=== PATIENT | female | born 1995 | race Hispanic/Latino ===

== ENCOUNTER 2019-08-03 14:35 | Emergency (ER) | payer OTHER | END 2019-08-03 14:44 | disposition left against medical advice (07) | LOC: EDH 14:35 | DX: Z53.21 Procedure and treatment not carried out due to patient leaving prior to being seen by health care provider (principal); F41.9 Anxiety disorder, unspecified; F32.9 Major depressive disorder, single episode, unspecified ==

== ENCOUNTER 2019-11-27 12:32 | Emergency (ER) | payer SELFPAY | END 2019-11-27 13:23 | disposition home or self-care (01) | LOC: EDH 12:32 | DX: S80.01XA Contusion of right knee, initial encounter (principal); S80.11XA Contusion of right lower leg, initial encounter; J45.909 Unspecified asthma, uncomplicated; F41.9 Anxiety disorder, unspecified; F32.9 Major depressive disorder, single episode, unspecified; Z90.49 Acquired absence of other specified parts of digestive tract; X58.XXXA Exposure to other specified factors, initial encounter; Y93.89 Activity, other specified; Y92.89 Other specified places as the place of occurrence of the external cause; Y99.8 Other external cause status | CPT/HCPCS: 99281 ==

== ENCOUNTER 2020-04-23 22:41 | Emergency (ER) | payer OTHER ==
[2020-04-23 23:03] LABS: BASOPHILS % (AUTO) 0.3 % (0.0-5.0); EOSINOPHILS % (AUTO) 0.6 % (0.0-8.0); HEMATOCRIT 33.7 % (36-48); LYMPHOCYTES % (AUTO) 15.4 % (21.0-51.0); MEAN CORPUSCULAR HEMOGLOBIN 30.1 pg (27.0-33.0); MEAN CORPUSCULAR HGB CONC 33.2 g/dL (32.0-36.0); MEAN CORPUSCULAR VOLUME 90.6 fL (79-99); MONOCYTES % (AUTO) 4.6 % (3.0-13.0); NEUTROPHILS % (AUTO) 78.8 % (40.0-77.0); PLATELET COUNT (AUTO) 308 K/uL (130-400); RED BLOOD CELL COUNT(AUTO) 3.72 MIL/uL (4.00-5.50); WHITE BLOOD COUNT (AUTO) 8.7 K/uL (4.8-10.8)
[2020-04-23 23:11] LABS: APPEARANCE,URINE Clear (CLEAR); BILIRUBIN,URINE Negative (NEGATIVE); COLOR,URINE Yellow (YELLOW); GLUCOSE, URINE (UA) Negative (NEGATIVE); KETONES,URINE Trace mg/dL (NEGATIVE); LEUKOCYTE ESTERASE ,URINE Negative (NEGATIVE); NITRATE,URINE Negative (NEGATIVE); OCCULT BLOOD,URINE Negative (NEGATIVE); PH,URINE 6.5 (5.0-8.0); PROTEIN,URINE Trace mg/dL (NEGATIVE)
[2020-04-23 23:13] LABS: HCG,QUAL RESULT NEGATIVE (NEGATIVE)
[2020-04-23 23:19] LABS: AMPHET/METH SCREEN,URINE POSITIVE (NEGATIVE); BARBITURATE SCREEN, URINE NEGATIVE (NEGATIVE); BENZODIAZEPINES SCREEN,URINE POSITIVE (NEGATIVE); CANNABINOID SCREEN,URINE POSITIVE (NEGATIVE); COCAINE SCREEN,URINE NEGATIVE (NEGATIVE); OPIATE SCREEN,URINE NEGATIVE (NEGATIVE); PHENCYCLIDINE SCREEN,URINE NEGATIVE (NEGATIVE)
[2020-04-23 23:23] LABS: ALBUMIN 3.9 g/dL (3.5-5.0); BILIRUBIN,TOTAL 0.4 mg/dL (0.2-1.0); CREATININE 0.7 mg/dL (0.5-1.5); TOTAL PROTEIN, SERUM 7.8 g/dL (6.0-8.3)
[2020-04-23] MEDS ORDERED: POTASSIUM BICARB/CIT AC 25 MEQ TABLET.EFF ONE (23:27)
== END 2020-04-23 23:45 ==
LOC: EDH 22:41
DX: E87.6 Hypokalemia (principal); R45.4 Irritability and anger; Z71.51 Drug abuse counseling and surveillance of drug abuser; J45.909 Unspecified asthma, uncomplicated; F32.9 Major depressive disorder, single episode, unspecified; F41.9 Anxiety disorder, unspecified; Z90.49 Acquired absence of other specified parts of digestive tract
CPT/HCPCS: 36415; 80053; 80305; 81003; 81025; 84484; 85025; 93005

== ENCOUNTER 2020-07-24 23:16 | Emergency (ER) | payer OTHER ==
[2020-07-24 23:35] LABS: BASOPHILS % (AUTO) 0.3 % (0.0-5.0); EOSINOPHILS % (AUTO) 1.8 % (0.0-8.0); HEMATOCRIT 37.3 % (36-48); LYMPHOCYTES % (AUTO) 25.3 % (21.0-51.0); MEAN CORPUSCULAR HEMOGLOBIN 26.5 pg (27.0-33.0); MEAN CORPUSCULAR HGB CONC 30.8 g/dL (32.0-36.0); MEAN CORPUSCULAR VOLUME 85.9 fL (79-99); MONOCYTES % (AUTO) 8.2 % (3.0-13.0); NEUTROPHILS % (AUTO) 64.1 % (40.0-77.0); PLATELET COUNT (AUTO) 264 K/uL (130-400); RED BLOOD CELL COUNT(AUTO) 4.34 MIL/uL (4.00-5.50); RED CELL DISTRIBUTION WIDTH 15.4 % (11.0-15.5); WHITE BLOOD COUNT (AUTO) 6.6 K/uL (4.8-10.8)
[2020-07-24 23:40] LABS: CREATININE 0.8 mg/dL (0.5-1.5); POTASSIUM 3.6 mmol/L (3.5-5.1)
[2020-07-24 23:46] LABS: ALBUMIN 3.3 g/dL (3.5-5.0); BILIRUBIN,TOTAL 0.2 mg/dL (0.2-1.0); TOTAL PROTEIN, SERUM 6.6 g/dL (6.0-8.3)
== END 2020-07-25 01:26 | disposition home or self-care (01) ==
LOC: EDH 23:16
DX: F44.5 Conversion disorder with seizures or convulsions (principal); Z76.5 Malingerer [conscious simulation]; F41.9 Anxiety disorder, unspecified; J45.909 Unspecified asthma, uncomplicated; F32.9 Major depressive disorder, single episode, unspecified; Z72.0 Tobacco use; Z90.49 Acquired absence of other specified parts of digestive tract
CPT/HCPCS: 36415; 80053; 82550; 85025; 93005

== ENCOUNTER 2020-08-08 14:56 | Inpatient (IN) | payer SELFPAY ==
[~2020-08-08] VITALS: Ht 162.6 cm; Wt 53.1 kg
[2020-08-08] MEDS ORDERED: 0.9%NACL 1000ML 1,000 ML IV ONE (15:25)
[2020-08-08 15:29] LABS: BASOPHILS % (AUTO) 0.2 % (0.0-5.0); EOSINOPHILS % (AUTO) 0.2 % (0.0-8.0); HEMATOCRIT 37.6 % (36-48); LYMPHOCYTES % (AUTO) 5.5 % (21.0-51.0); MEAN CORPUSCULAR HEMOGLOBIN 26.4 pg (27.0-33.0); MEAN CORPUSCULAR HGB CONC 33.2 g/dL (32.0-36.0); MEAN CORPUSCULAR VOLUME 79.3 fL (79-99); MONOCYTES % (AUTO) 3.7 % (3.0-13.0); PLATELET COUNT (AUTO) 429 K/uL (130-400); RED BLOOD CELL COUNT(AUTO) 4.74 MIL/uL (4.00-5.50); RED CELL DISTRIBUTION WIDTH 15.5 % (11.0-15.5); WHITE BLOOD COUNT (AUTO) 11.4 K/uL (4.8-10.8)
[2020-08-08 15:49] LABS: CARBON DIOXIDE 19 mmol/L (21-32); CHLORIDE 100 mmol/L (101-111); CREATININE 0.9 mg/dL (0.5-1.5); GLOMERULAR FILTR. RATE CALC 81 mL/min (>60); GLUCOSE,RANDOM 108 mg/dL (70-105); POTASSIUM 3.3 mmol/L (3.5-5.1); SODIUM SERUM 137 mmol/L (136-145); UREA NITROGEN, BLOOD 14 mg/dL (7-18)
[2020-08-08 15:53] LABS: ALANINE AMINOTRANSFERASE 18 U/L (12-78); ALBUMIN 4.3 g/dL (3.5-5.0); ALCOHOL, BLOOD < 3 mg/dL (0-10); ASPARTATE AMINOTRANSFERASE 20 U/L (10-37); BILIRUBIN,TOTAL 1.3 mg/dL (0.2-1.0); CREATINE KINASE, TOTAL 100 U/L (21-232); TOTAL PROTEIN, SERUM 8.3 g/dL (6.0-8.3)
[2020-08-08 15:54] LABS: ACETAMINOPHEN < 1 mcg/mL (10-30); SALICYLATE < 2.8 mg/dL (2.8-20.0)
[2020-08-08 16:38] LABS: APPEARANCE,URINE CLOUDY (CLEAR); BILIRUBIN,URINE NEGATIVE (NEGATIVE); COLOR,URINE YELLOW (YELLOW); GLUCOSE, URINE (UA) NEGATIVE (NEGATIVE); KETONES,URINE >=80 mg/dL (NEGATIVE); LEUKOCYTE ESTERASE ,URINE NEGATIVE (NEGATIVE); NITRATE,URINE POSITIVE (NEGATIVE); OCCULT BLOOD,URINE NEGATIVE (NEGATIVE); PH,URINE 8.5 (5.0-8.0); PROTEIN,URINE TRACE mg/dL (NEGATIVE)
[2020-08-08 16:46] LABS: AMPHET/METH SCREEN,URINE POSITIVE (NEGATIVE); BARBITURATE SCREEN, URINE NEGATIVE (NEGATIVE); BENZODIAZEPINES SCREEN,URINE POSITIVE (NEGATIVE); CANNABINOID SCREEN,URINE POSITIVE (NEGATIVE); COCAINE SCREEN,URINE POSITIVE (NEGATIVE); OPIATE SCREEN,URINE NEGATIVE (NEGATIVE); PHENCYCLIDINE SCREEN,URINE NEGATIVE (NEGATIVE)
[2020-08-08 16:50] LABS: HCG,QUAL RESULT NEGATIVE (NEGATIVE)
[2020-08-08 16:57] LABS: BACTERIA,URINE Moderate /HPF (None Seen); RBC,URINE 0-1 /HPF (0-1)
[2020-08-08 16:58] LABS: SQUAMOUS EPITHELIAL CELL,UR Moderate /HPF (0-2)
[2020-08-08] MEDS ORDERED: CEFTRIAXONE 1G VIAL ONE (20:54)
[2020-08-08] MEDS: LACTATED RINGERS 1000ML 1,000 ML IV SCH (23:00)
[2020-08-08] MEDS ORDERED: LORAZEPAM 2 MG/ML 1 ML VIAL IVP PRN (23:00)
[2020-08-08] MEDS ORDERED: ONDANSETRON 4MG INJ IV PRN (23:15)
[2020-08-08] MEDS ORDERED: LACTULOSE 20 GM/30 ML UDCUP PO PRN (23:15)
[2020-08-08] MEDS ORDERED: DiphenhydrAMINE HCL 50 MG/ML VIAL IV PRN (23:15)
[2020-08-08] MEDS ORDERED: DIPHENHYDRAMINE HCL 25 MG CAPSULE PO PRN (23:15)
[2020-08-08] MEDS ORDERED: NITROGLYCERIN 0.4 MG SL TAB SL PRN (23:15)
[2020-08-08] MEDS ORDERED: MAG/ALUM/SIMETH 30 ML UDCUP PO PRN (23:15)
[2020-08-08] MEDS ORDERED: ACETAMINOPHEN 325 MG TAB PO PRN ×2 (23:15)
[2020-08-08] MEDS ORDERED: GUAIFENESIN-DM 200/20 MG 10 ML PO PRN (23:15)
[2020-08-08] MEDS ORDERED: LORAZEPAM 2 MG/ML 1 ML VIAL ONE (23:27)
[2020-08-09] MEDS ORDERED: DiphenhydrAMINE HCL 50 MG/ML VIAL ONE (02:52)
[2020-08-09] MEDS ORDERED: HALOPERIDOL INJ 5 MG/ML VIAL ONE (05:04)
[2020-08-09 06:57] LABS: BASOPHILS % (AUTO) 0.2 % (0.0-5.0); EOSINOPHILS % (AUTO) 0.1 % (0.0-8.0); HEMATOCRIT 33.4 % (36-48); LYMPHOCYTES % (AUTO) 6.1 % (21.0-51.0); MEAN CORPUSCULAR HEMOGLOBIN 26.9 pg (27.0-33.0); MEAN CORPUSCULAR HGB CONC 33.2 g/dL (32.0-36.0); MEAN CORPUSCULAR VOLUME 81.1 fL (79-99); MONOCYTES % (AUTO) 5.4 % (3.0-13.0); NEUTROPHILS % (AUTO) 87.7 % (40.0-77.0); PLATELET COUNT (AUTO) 329 K/uL (130-400); RED BLOOD CELL COUNT(AUTO) 4.12 MIL/uL (4.00-5.50); RED CELL DISTRIBUTION WIDTH 15.9 % (11.0-15.5); WHITE BLOOD COUNT (AUTO) 16.5 K/uL (4.8-10.8)
[2020-08-09] MEDS: LACTATED RINGERS 1000ML 1,000 ML IV SCH ×3 (07:00→20:35)
[2020-08-09 07:21] LABS: ALBUMIN 3.6 g/dL (3.5-5.0); BILIRUBIN,TOTAL 1.1 mg/dL (0.2-1.0); CREATININE 0.7 mg/dL (0.5-1.5); POTASSIUM 3.5 mmol/L (3.5-5.1); TOTAL PROTEIN, SERUM 7.5 g/dL (6.0-8.3)
[2020-08-09] MEDS ORDERED: LACTATED RINGERS 1000ML 1,000 ML IV ONE (07:54)
[2020-08-09] MEDS: CEFTRIAXONE 1G VIAL IVP SCH (10:30)
[2020-08-09] MEDS ORDERED: CEFTRIAXONE 1G VIAL ONE (11:27)
[2020-08-09] MEDS ORDERED: 0.9%NACL 50ML 50 ML IV ONE (11:29)
[2020-08-09] MEDS: ENOXAPARIN SODIUM 60 MG/0.6 ML SQ SCH (21:00)
[2020-08-10] MEDS ORDERED: ENOXAPARIN SODIUM 80 MG/0.8 ML SQ ONE (01:25)
[2020-08-10] MEDS ORDERED: LORAZEPAM 2 MG/ML 1 ML VIAL ONE (01:25)
[2020-08-10] MEDS: LACTATED RINGERS 1000ML 1,000 ML IV SCH (04:19)
[2020-08-10 04:23] VITALS: BP 90/51
[2020-08-10 07:00] VITALS: BP 82/62
[2020-08-10 08:25] LABS: BASOPHILS % (AUTO) 0.3 % (0.0-5.0); EOSINOPHILS % (AUTO) 1.1 % (0.0-8.0); HEMATOCRIT 31.8 % (36-48); LYMPHOCYTES % (AUTO) 11.7 % (21.0-51.0); MEAN CORPUSCULAR HEMOGLOBIN 26.4 pg (27.0-33.0); MEAN CORPUSCULAR HGB CONC 32.4 g/dL (32.0-36.0); MEAN CORPUSCULAR VOLUME 81.5 fL (79-99); MONOCYTES % (AUTO) 6.8 % (3.0-13.0); NEUTROPHILS % (AUTO) 79.7 % (40.0-77.0); PLATELET COUNT (AUTO) 315 K/uL (130-400); RED CELL DISTRIBUTION WIDTH 16.2 % (11.0-15.5); WHITE BLOOD COUNT (AUTO) 13.2 K/uL (4.8-10.8)
[2020-08-10 08:43] LABS: ALBUMIN 3.1 g/dL (3.5-5.0); BILIRUBIN,TOTAL 0.8 mg/dL (0.2-1.0); POTASSIUM 3.2 mmol/L (3.5-5.1); TOTAL PROTEIN, SERUM 6.9 g/dL (6.0-8.3)
[2020-08-10 08:52] LABS: CREATININE 0.6 mg/dL (0.5-1.5)
[2020-08-10] MEDS: ENOXAPARIN SODIUM 60 MG/0.6 ML SQ SCH ×2 (10:20→21:51)
[2020-08-10] MEDS: CEFTRIAXONE 1G VIAL IVP SCH (10:21)
[2020-08-10 11:30] VITALS: BP 100/60
[2020-08-10 16:00] VITALS: BP 101/60
[2020-08-10 20:00] VITALS: BP 100/63
[2020-08-10 23:12] VITALS: BP 96/50
[2020-08-11] MEDS: LACTATED RINGERS 1000ML 1,000 ML IV SCH ×4 (01:04→20:47)
[2020-08-11 04:00] VITALS: BP 103/59
[2020-08-11 05:24] LABS: BASOPHILS % (AUTO) 0.4 % (0.0-5.0); EOSINOPHILS % (AUTO) 0.8 % (0.0-8.0); HEMATOCRIT 29.3 % (36-48); LYMPHOCYTES % (AUTO) 12.4 % (21.0-51.0); MEAN CORPUSCULAR HEMOGLOBIN 26.3 pg (27.0-33.0); MEAN CORPUSCULAR HGB CONC 32.1 g/dL (32.0-36.0); MEAN CORPUSCULAR VOLUME 81.8 fL (79-99); MONOCYTES % (AUTO) 7.2 % (3.0-13.0); NEUTROPHILS % (AUTO) 78.7 % (40.0-77.0); PLATELET COUNT (AUTO) 290 K/uL (130-400); RED BLOOD CELL COUNT(AUTO) 3.58 MIL/uL (4.00-5.50); RED CELL DISTRIBUTION WIDTH 16.1 % (11.0-15.5); WHITE BLOOD COUNT (AUTO) 8.2 K/uL (4.8-10.8)
[2020-08-11 05:37] LABS: ALBUMIN 2.5 g/dL (3.5-5.0); BILIRUBIN,TOTAL 0.7 mg/dL (0.2-1.0); CREATININE 0.5 mg/dL (0.5-1.5); POTASSIUM 3.2 mmol/L (3.5-5.1); TOTAL PROTEIN, SERUM 6.2 g/dL (6.0-8.3)
[2020-08-11 06:31] LABS: INR 0.97 (0.85-1.15); PROTHROMBIN TIME 10.6 SEC (9.6-11.6)
[2020-08-11 07:30] VITALS: BP 115/63
[2020-08-11] MEDS: CEFTRIAXONE 1G VIAL IVP SCH (10:48)
[2020-08-11] MEDS: ENOXAPARIN SODIUM 60 MG/0.6 ML SQ SCH (10:48)
[2020-08-11 11:00] VITALS: BP 105/58
[2020-08-11] MEDS ORDERED: THIAMINE HCL 100 MG/ML 2ML VIAL IV SCH (11:53)
[2020-08-11] MEDS: FOLIC ACID 1 MG TABLET PO SCH ×2 (11:55→20:41)
[2020-08-11 16:00] VITALS: BP 100/51
[2020-08-11] MEDS ORDERED: WARFARIN SODIUM 1 MG TAB PO SCH (16:00)
[2020-08-11] MEDS ORDERED: APIX5TAB PO (16:53)
[2020-08-11 19:18] VITALS: BP 95/55
[2020-08-11] MEDS: APIXABAN 5 MG TABLET PO SCH (20:41)
[2020-08-12 04:08] VITALS: BP 102/51
[2020-08-12 04:09] VITALS: BP 93/56
[2020-08-12 05:56] LABS: BASOPHILS % (AUTO) 0.5 % (0.0-5.0); EOSINOPHILS % (AUTO) 1.5 % (0.0-8.0); LYMPHOCYTES % (AUTO) 17.4 % (21.0-51.0); MEAN CORPUSCULAR HEMOGLOBIN 26.2 pg (27.0-33.0); MEAN CORPUSCULAR VOLUME 81.8 fL (79-99); MONOCYTES % (AUTO) 10.2 % (3.0-13.0); NEUTROPHILS % (AUTO) 69.7 % (40.0-77.0); PLATELET COUNT (AUTO) 371 K/uL (130-400); RED BLOOD CELL COUNT(AUTO) 4.28 MIL/uL (4.00-5.50); RED CELL DISTRIBUTION WIDTH 15.9 % (11.0-15.5)
[2020-08-12 06:15] LABS: CREATININE 0.5 mg/dL (0.5-1.5); POTASSIUM 3.3 mmol/L (3.5-5.1)
[2020-08-12 06:24] LABS: PROTHROMBIN TIME 10.9 SEC (9.6-11.6)
[2020-08-12 06:26] LABS: PARTIAL THROMBOPLASTIN TIME 31.3 SEC (26.3-35.5)
[2020-08-12] MEDS ORDERED: CEPH500B PO (09:04)
[2020-08-12 11:00] VITALS: BP 104/65
[2020-08-12] MEDS: APIXABAN 5 MG TABLET PO SCH (11:15)
[2020-08-12] MEDS: FOLIC ACID 1 MG TABLET PO SCH (11:15)
[2020-08-14] MEDS ORDERED: THIAMINE HCL 100 MG/ML 2ML VIAL IV SCH (09:00)
== END 2020-08-12 14:10 | disposition home or self-care (01) | DRG 689 ==
LOC: EDH 14:56 → OBSVTOIN 14:57 → EDHIP 14:57 → 3BH 08-10 03:18
PROVIDERS: ADMIT Family Medicine; ATTEND Family Medicine
DX: N39.0 Urinary tract infection, site not specified (principal); G93.41 Metabolic encephalopathy; I82.621 Acute embolism and thrombosis of deep veins of right upper extremity; I82.619 Acute embolism and thrombosis of superficial veins of unspecified upper extremity; F14.129 Cocaine abuse with intoxication, unspecified; F15.129 Other stimulant abuse with intoxication, unspecified; B96.20 Unspecified Escherichia coli [E. coli] as the cause of diseases classified elsewhere; D64.9 Anemia, unspecified; E11.9 Type 2 diabetes mellitus without complications; F32.9 Major depressive disorder, single episode, unspecified; F41.9 Anxiety disorder, unspecified; J45.909 Unspecified asthma, uncomplicated; Z79.01 Long term (current) use of anticoagulants; T42.4X5A Adverse effect of benzodiazepines, initial encounter; Y92.89 Other specified places as the place of occurrence of the external cause; F19.10 Other psychoactive substance abuse, uncomplicated
CPT/HCPCS: 36415; 70450; 73080; 80048; 80053; 80305; 81001; 81025; 82550; 83605; 85025; 85610; 85730; 87077; 87088; 87186; 93005; 93971; G0378; G0481; J0696; J1200; J1630; J1650; J2060; J3411; J7030; J7120